=== PATIENT | female | born 1970 | race Caucasian/White ===

== ENCOUNTER 2018-05-10 19:36 | Emergency (ER) | payer OTHER ==
[2018-05-10 20:03] VITALS: BP 110/66; PULSE 53; TEMP 97.3; BMI 28.9
[2018-05-10] MEDS ORDERED: IBUPROFEN 600 MG TABLET (FP) PO ONE ×2 (20:03→20:06)
--- NOTE | 2018-05-10 20:03 | PDOC ---
Rapid Medical Evaluation Time Seen by Provider: 05/10/18 20:00 Medical Evaluation: Allergies Allergy/AdvReac Type Severity Reaction Status Date / Time No Known Allergies Allergy Verified 11/03/15 23:38 05/10/18 20:00 I have performed a brief in-person evaluation of this patient The patient present with a chief complaint of: right groin pain since yesterday. States pain to right groin that radiates to right abdomen, making it difficulty for her to walk Pertinent physical exam findings: NAD even an unlabored breathing non tender abdomen, no cva tenderness I have ordered the following: u/a analgesia The patient will proceed to the ED for further evaluation. Discharge Disposition - Diagnosis Right groin pain - Referrals - Patient Instructions - Post Discharge Activity
[2018-05-10 20:46] LABS: URINE APPEARANCE Clear; URINE BILIRUBIN Negative (NEGATIVE); URINE COLOR Yellow; URINE GLUCOSE (UA) Negative (NEGATIVE); URINE KETONE Trace (NEGATIVE); URINE LEUK ESTERASE Negative (NEGATIVE); URINE NITRITE Negative (NEGATIVE); URINE PROTEIN Negative (NEGATIVE); URINE UROBILINOGEN 0.2 mg/dL (0.2-1.0)
--- NOTE | 2018-05-10 21:17 | PDOC ---
History of Present Illness - General Chief Complaint: Pain, Acute Stated Complaint: PAIN IN LWR RIGHT LEG Time Seen by Provider: 05/10/18 20:00 - History of Present Illness Initial Comments: 05/10/18 21:16 48-year-old female without comorbidities presents for right sided pelvic pain times one day without systemic symptoms Past History - Past Medical History Allergies/Adverse Reactions: Allergies Allergy/AdvReac Type Severity Reaction Status Date / Time No Known Allergies Allergy Verified 11/03/15 23:38 Home Medications: Ambulatory Orders NK [No Known Home Medication] 11/03/15 - Surgical History Abdominal Surgery: Yes - Immunization History Immunization Up to Date: Yes - Suicide/Smoking/Psychosocial Hx Smoking History: Never smoked Number of Cigarettes Smoked Daily: 0 Hx Alcohol Use: No Drug/Substance Use Hx: No Substance Use Type: None Review of Systems - Review of Systems Constitutional: No: Fever : Yes: See HPI. No: Burning *Physical Exam - Vital Signs Last Vital Signs Temp Pulse Resp BP Pulse Ox 97.3 F L 53 L 20 110/66 99 05/10/18 20:01 05/10/18 20:01 05/10/18 20:01 05/10/18 20:01 05/10/18 20:01 - Physical Exam Comments: 05/10/18 21:17 HEAD: NC/AT EYES: Conjuntiva clear Ears: Canals and TM's normal NOSE: No d/c THROAT: Moist mucous membrances, oral pharanx clear, uvula midline NECK: Supple without adenopathy CARDIAC: S1 S2 LUNGS: CTA Full and Equal breath sounds ABDOMEN: Soft NT ND MS: Full ROM in all joints without edema NEUROLOGIC: No gross sensory or motor deficits, NVID SKIN: Normal color and temperature no lesions or rashes Pelvic examination and bimanual examination done with female PA in the room. There is right-sided adnexal tenderness. Cervical os is normal. No left-sided adnexal tenderness. No discharge. ED Treatment Course - ADDITIONAL ORDERS Additional order review: Laboratory Results 05/10/18 20:18 Urine Color Yellow Urine Appearance Clear Urine pH 6.0 Ur Specific [place] >= 1.030 Urine Protein Negative Urine Glucose (UA) Negative Urine Ketones Trace Urine Blood 2+ H Urine Nitrite Negative Urine Bilirubin Negative Urine Urobilinogen 0.2 Ur Leukocyte Esterase Negative - RADIOLOGY Radiology Studies Ordered: Category Date Time Status TRANSVAGINAL ULTRASOUND US [US] Stat Ultrasound 05/10/18 21:16 Ordered - Medications Given in the ED: ED Medications Discontinued Medications Generic Name Dose Route Start Last Admin Trade Name Peyton PRN Reason Stop Dose Admin Ibuprofen 600 mg 05/10/18 20:03 05/10/18 20:10 Motrin - PO 05/10/18 20:04 600 mg ONCE ONE Administration Medical Decision Making - Medical Decision Making 05/10/18 21:57 US reviewed, differential includes abdominal muscle strain, Hip OA, but no pain with hip motion, I have discussed findings with pt and will have her follow up with PCP. She is in agreement with the plan. *DC/Admit/Observation/Transfer Diagnosis at time of Disposition: Right groin pain - Discharge Dispostion Disposition: HOME Condition at time of disposition: Stable Decision to Admit order: No - Referrals Referrals: Ping Brink MD [Primary Care Provider] - - Patient Instructions Printed Discharge Instructions: Abdominal Muscle Strain, DI for Abdominal Muscle Strain Additional Instructions: Follow-up with your primary care physician in one to 2 days. Return to the emergency room for worsening symptoms. Tylenol and Motrin as directed for pain. - Post Discharge Activity
== END 2018-05-10 22:08 | disposition home or self-care (01) ==
LOC: JERFT 19:36
DX: R10.31 Right lower quadrant pain (principal)
CPT/HCPCS: 76830-TC; 81003; 99281-25

== ENCOUNTER 2018-08-29 00:47 | Emergency (ER) | payer OTHER ==
[2018-08-29 01:00] VITALS: BP 99/66; PULSE 88; TEMP 98.5; BMI 29.2
--- NOTE | 2018-08-29 01:19 | PDOC ---
Attending Attestation - Resident Resident Name: AbeLauryn - ED Attending Attestation I have performed the following: I have examined & evaluated the patient, The case was reviewed & discussed with the resident, I agree w/resident's findings & plan - HPI HPI: 08/29/18 01:31 Pt has right ear pain; pain is anterior to the tragus on the right side. She has no mastoid tenderness. No OE pain; no pain with movement of the pinna. Her ear drum is a little duller on the right side. Pt has no dental pain on that side. Pt has no fever. She takes care of grandson, but grandson is not sick. Pt is not working at this time. - Physicial Exam PE: 08/29/18 01:37 Agree with resident exam; normal exam. Only point tenderness deep within the right jaw/anterior ear area. - Medical Decision Making 08/29/18 01:38 Pt will be asked to follow with dental as well as ENT.
--- NOTE | 2018-08-29 01:23 | PDOC ---
History of Present Illness - General Chief Complaint: Ear Problem Stated Complaint: R EAR PAIN Time Seen by Provider: 08/29/18 01:17 History Source: Patient Exam Limitations: No Limitations - History of Present Illness Initial Comments: 08/29/18 01:23 48YOF with h/o migraines, HLD, and pre-DM who p/w 3 days worsening right ear pain, fullness, and slight itchiness. The pain has since started radiating slightly to the right angle of the jaw. She denies any difficulty hearing, neck pain throat pain, f/c/n/v/d/c, chest pain, SOB, vision difficulty, dizziness/ lightheadedness, n/t/w focally, or other symptoms. She does not typically get ear infections. She has not noticed liquid draining from the ear. She tried putting hydrogen peroxide in the ear before coming here which did not help. Past History - Past Medical History Allergies/Adverse Reactions: Allergies Allergy/AdvReac Type Severity Reaction Status Date / Time No Known Allergies Allergy Verified 08/29/18 00:59 Home Medications: Ambulatory Orders Amoxicillin/Potassium Clav [Augmentin 500-125 Tablet] 1 each PO BID #13 tablet 08/29/18 - Surgical History Abdominal Surgery: Yes - Immunization History Immunization Up to Date: Yes - Suicide/Smoking/Psychosocial Hx Smoking History: Never smoked Have you smoked in the past 12 months: No Number of Cigarettes Smoked Daily: 0 Information on smoking cessation initiated: No Hx Alcohol Use: No Drug/Substance Use Hx: No Substance Use Type: None Review of Systems - Review of Systems Able to Perform ROS?: Yes Comments:: 08/29/18 01:33 GEN: no fever, chills, malaise, generalized weakness, or weight change HEENT: ear pain, no sore throat, vision change, or eye pain CV: no chest pain, palpitations, lightheadedness, syncope, or edema RESP: no cough, wheezing, or SOB GI: no abdominal pain, nausea, vomiting, diarrhea, constipation, or white/black/ bloody stool : no dysuria, hematuria, incontinence, retention, bleeding, or discharge MSK: no neck/back pain, muscle weakness/pain, or joint swelling/pain NEURO: no headache, seizure, vertigo, numbness, tingling, or focal weakness PSYCH: no substance use, no behavior change SKIN: no jaundice, no rash ROS otherwise negative except as noted in HPI *Physical Exam - Vital Signs Last Vital Signs Temp Pulse Resp BP Pulse Ox 98.5 F 88 18 99/66 99 08/29/18 00:59 08/29/18 00:59 08/29/18 00:59 08/29/18 00:59 08/29/18 00:59 - Physical Exam Comments: 08/29/18 01:33 GENERAL: nontoxic-appearing, A/Ox4, no distress, answers questions appropriately , Chinese-speaking, accompanied by daughter HEENT: PERRLA, EOMI, moist mucous membranes, EACs clear, right TM dull compared to right and there is tenderness to the right EAC, no mastoid tenderness, mild tenderness anterior to the tragus, no tenderness to manipulation of the tragus NECK/BACK: no midline ttp, no spinal stepoff or deformity, no hematoma, full ROM , neck supple CARDIOVASCULAR: regular rate/rhythm, normal S1S2, no MGR, strong peripheral pulses, capillary refill <2 seconds, extremities wwp, no edema LUNGS/RESPIRATORY: no respiratory distress, CTAB GI/ABDOMEN: symmetric [id number], normoactive BS, soft, no ttp, no midline pulsatile masses : no CVA tenderness EXTREMITIES: no muscle atrophy, no acute deformity SKIN: warm and dry, no pallor, no jaundice, no rash, no bruising, no skin breakdown, no cuts, no lesions NEUROLOGICAL: GCS 15, CN II-XII grossly intact, 5/5 strength proximally and distally, no facial droop Medical Decision Making - Medical Decision Making 08/29/18 01:30 48YOF p/w ear pain. Initial Vital Signs Temp Pulse Resp BP Pulse Ox 98.5 F 88 18 99/66 99 08/29/18 00:59 08/29/18 00:59 08/29/18 00:59 08/29/18 00:59 08/29/18 00:59 Exam: As noted in Physical Exam section. DDX IBNLT: Otitis media (serous versus infectious), otitis externa (c/f malignant OE), zoster (c/f HSV oticus, [place] syndrome), trauma, tympanic membrane rupture, foreign body, headache W/U ordered: None [place] ordered: Motrin, Augmentin DISCHARGE This patient has gotten significant relief of symptoms while in the ED. On last reassessment, vitals are wnl, pain is reasonably controlled, and exam is benign. Workup is not concerning for emergency-level pathology at this time. This patient is appropriate for discharge with close outpatient follow up. E-Rx for abx sent to her pharmacy after dose given here in the ED. They are comfortable with this plan and will follow up with their primary care provider in 1-3 days. Specific return precautions are discussed and they will come back to the ER if necessary. *DC/Admit/Observation/Transfer Diagnosis at time of Disposition: Otitis media Qualifiers: Otitis media type: unspecified Chronicity: acute Qualified Code(s): H66.90 - Otitis media, unspecified, unspecified ear - Discharge Dispostion Disposition: HOME Condition at time of disposition: Stable Decision to Admit order: No - Prescriptions Prescriptions: Amoxicillin/Potassium Clav [Augmentin 500-125 Tablet] 1 each PO BID #13 tablet - Referrals Referrals: Ping Brink MD [Primary Care Provider] - Silvio Russell MD [Staff Physician] - - Patient Instructions Additional Instructions: You were seen in the ER for ear pain. We did an exam and were able to see evidence of an ear infection. We gave a dose of antibiotic here in the ER and are sending an electronic prescription to your pharmacy for a course of antibiotic. After our assessment, we do not believe there is a medical emergency at this time, and we believe it is safe to go home. Please order picker the antibiotics from the pharmacy and take the whole course, whether or not the symptoms resolve. Take motrin and tylenol as you need them for pain. Please follow up with your primary care provider in 1-3 days, as well as the dentist and the ear, nose, and throat doctor. Call their clinic as soon as possible, tell them you were seen in the er, and tell them you need an appointment. If there are any new or worsening symptoms, please come back to the ER at any time (24 hours a day). If the symptoms appear severe or life-threatening, please call 911 to have an ambulance take you to the ER. Usted fue visto en la janet de emergencias por dolor de odo. Hicimos un examen y pudimos nicki evidencia de larisa infeccin en el odo. Le dimos larisa dosis de antibitico aqu en la janet de emergencias y le estamos enviando larisa receta electrnica a muro farmacia para un curso de antibiticos. Despus de nuestra evaluacin, no creemos que haya larisa emergencia mdica en meme momento, y creemos que es seguro ir a casa. Por favor, recoja los antibiticos de la farmacia y tome el curso completo, ya sea que los sntomas se resuelvan o no. [place] motrin y tylenol cuando los necesite para el dolor. Por favor roshan un seguimiento con muro proveedor de atencin primaria en 1 a 3 pizarro, al igual que con el dentista y el otorrhinolaryngologo. Llame a muro clnica lo antes posible, dgales que lo vieron en la janet de emergencias y que necesita larisa anam. Si hay algn sntoma nuevo o que empeora, vuelva a la janet de emergencias en cualquier momento (las 24 horas del da). Si los sntomas parecen ser graves o potencialmente mortales, llame al 911 para pedir que larisa ambulancia lo lleve a la janet de emergencias. - Post Discharge Activity
[2018-08-29] MEDS ORDERED: AMOX TR/POT CLAV 500MG/125MG TABLETS (FP) PO ONE (01:29)
[2018-08-29] MEDS ORDERED: IBUPROFEN 400 MG TABLET (FP) PO ONE ×2 (01:29→01:31)
[2018-08-29] MEDS ORDERED: AMOX TR/POT CLAV 500MG/125MG TABLETS (FP) ONE (01:31)
== END 2018-08-29 01:46 | disposition home or self-care (01) ==
LOC: JER 00:47
DX: H66.91 Otitis media, unspecified, right ear (principal); E78.5 Hyperlipidemia, unspecified; R73.03 Prediabetes
CPT/HCPCS: 99282-25

== ENCOUNTER 2021-02-18 21:55 | Emergency (ER) | payer OTHER ==
[2021-02-18 22:28] VITALS: TEMP 98.6; BMI 29.8
[2021-02-19] MEDS ORDERED: ERYTHROMYCIN 0.5% OPHTHALMIC OINTMENT 3.5 GM TUBE ONE (00:20)
[2021-02-19] MEDS ORDERED: ERYTHROMYCIN 0.5% OPHTHALMIC OINTMENT 3.5 GM TUBE OU ONE (01:03)
== END 2021-02-19 01:23 | disposition home or self-care (01) ==
LOC: JER 21:55
DX: S05.02XA Injury of conjunctiva and corneal abrasion without foreign body, left eye, initial encounter (principal); S05.01XA Injury of conjunctiva and corneal abrasion without foreign body, right eye, initial encounter; T65.891A Toxic effect of other specified substances, accidental (unintentional), initial encounter
CPT/HCPCS: 99283-25

== ENCOUNTER 2022-07-21 04:13 | Day surgery (SDC) | payer OTHER ==
[2022-07-18 17:52] VITALS: BMI 25.9
[2022-07-21] MEDS ORDERED: MIDAZOLAM HCL 2 MG/2 ML SINGLE DOSE VIAL ONE (14:06)
[2022-07-21] MEDS ORDERED: ONDANSETRON 4 MG/2 ML VIAL ONE (14:06)
[2022-07-21] MEDS ORDERED: PROPOFOL 40 ML ONE (14:06)
[2022-07-21 16:40] VITALS: RESP 18
[2022-07-21 16:43] VITALS: BP 101/64; PULSE 54; TEMP 98
== END 2022-07-21 16:24 | disposition home or self-care (01) ==
LOC: JASU-SURG 04:13
PROVIDERS: ATTEND Urology
PROC: 0TC03ZZ Extirpation of Matter from Right Kidney, Percutaneous Approach (ICD-10-PCS; principal; 2022-07-21 13:30)
DX: N20.0 Calculus of kidney (principal)

== ENCOUNTER 2024-05-24 06:47 | Day surgery (SDC) | payer OTHER ==
[2024-05-17 09:49] VITALS: BMI 28.7
[2024-05-24 12:26] VITALS: TEMP 98
[2024-05-24 13:00] VITALS: RESP 18
[2024-05-24 13:04] VITALS: BP 105/69; PULSE 61
== END 2024-05-24 13:10 | disposition home or self-care (01) ==
LOC: JASU-ENDO 06:47
PROVIDERS: ATTEND Internal Medicine Gastroenterology
PROC: 0DB78ZX Excision of Stomach, Pylorus, Via Natural or Artificial Opening Endoscopic, Diagnostic (ICD-10-PCS; 2024-05-24)
PROC: 0DB68ZX Excision of Stomach, Via Natural or Artificial Opening Endoscopic, Diagnostic (ICD-10-PCS; principal; 2024-05-24 11:45)
DX: K29.50 Unspecified chronic gastritis without bleeding (principal)
CPT/HCPCS: 88305-TC; 88342-TC